=== PATIENT | female | born 1980 | race Caucasian/White ===

== ENCOUNTER 2016-08-19 18:07 | Emergency (ER) | payer OTHER ==
[~2016-08-19] VITALS: Ht 170.2 cm; Wt 82.1 kg
[2016-08-19] MEDS ORDERED: HYDR-3713 PO (18:17)
[2016-08-19] MEDS ORDERED: IBUP600T26 PO (18:17)
[2016-08-19] MEDS ORDERED: predniSONE 20 MG TAB PO ONE (19:30)
[2016-08-19] MEDS ORDERED: FAMOTIDINE 20 MG TAB PO ONE (19:30)
[2016-08-19] MEDS ORDERED: DICYCLOMINE 10 MG CAP PO ONE (19:30)
--- NOTE | 2016-08-19 19:33 | ED PDOC ---
Post-Departure Follow-Up Patient presents to the ED with a possible "allergic reaction". She states that she was told "years ago" that she is allergic to her hormones. She states that she normally gets abdominal cramps with diarrhea and hives. When this occurs, it happens when she gets her menses (which she currently doesn't have). She states the symptoms will generally last 4-5 hours if she takes Benadryl right away. She states that this time, in addition to not having her menses, she is feeling chest tightness, shortness of breath and throat swelling. The remainder of her H&P and ROS are as noted on her T-sheet. She has already taken Benadryl 50 mg po, therefore, Prednisone 60 mg, Pepcid 40 mg were ordered for her allergic reaction and Bentyl 10 mg was ordered for her cramps. NAYELI HODGSON. [facility] Aug 19, 2016 19:33
--- NOTE | 2016-08-19 20:26 | ED PDOC ---
Post-Departure Follow-Up No worsening of symptoms. Discussed discharge plans, including prescriptions, follow-up and worrisome signs to return to the ED for. Questions answered. Patient states understanding to the instructions NAYELI HODGSON [facility] Aug 19, 2016 20:26
[2016-08-19] MEDS ORDERED: PEPC1TAB4 PO (20:30)
[2016-08-19] MEDS ORDERED: MEDR4PAK PO (20:30)
[2016-08-19 20:37] VITALS: BP 136/85
== END 2016-08-19 20:39 | disposition home or self-care (01) ==
LOC: M ED 19:04
DX: T78.40XA Allergy, unspecified, initial encounter (principal); Y92.9 Unspecified place or not applicable; Y93.9 Activity, unspecified; Z79.899 Other long term (current) drug therapy; Z88.2 Allergy status to sulfonamides

== ENCOUNTER → 2017-05-03 | Outpatient (REF) | payer OTHER ==
[2017-05-03 15:48] LABS: BASO % 0.4 % (0.0-1.0); EOS # 0.1 10^3/uL (0.0-0.50); EOS % 0.5 % (0.0-3.0); HEMATOCRIT 34.7 % (36.0-47.0); HEMOGLOBIN 11.7 g/dl (12.0-16.0); IMMATURE GRANULOCYTE % 0.8 % (0-3.0); LYMPH # 1.7 10^3/uL (1.5-4.5); LYMPH % 17.3 % (24.0-44.0); MEAN CORPUSCULAR HEMOGLOBIN 32.8 pg (27.0-33.0); MEAN CORPUSCULAR HGB CONC 33.7 g/dl (32.0-36.5); MEAN CORPUSCULAR VOLUME 97.2 fl (80.0-96.0); MONO # 0.8 10^3/uL (0.0-0.8); MONO % 7.9 % (0.0-5.0); NEUTROPHILS # 7.3 10^3/uL (1.8-7.7); NEUTROPHILS % 73.1 % (36.0-66.0); PLATELET COUNT, AUTOMATED 303 10^3/uL (150-450); RED BLOOD COUNT 3.57 10^6/uL (4.00-5.40)
[2017-05-03 16:11] LABS: GLUCOSE CHALLENGE TEST 1 HOUR 96 MG/DL (LESS THAN 140)
[2017-05-05 08:07] LABS: HERPES ZOSTER, VARICELLA IgG 905 index (Immune >165)
== END ==
LOC: M LABDRAW1 11:04
DX: Z34.83 Encounter for supervision of other normal pregnancy, third trimester (principal)

== ENCOUNTER → 2017-07-02 | Outpatient (REF) | payer OTHER ==
[2017-07-02 16:13] LABS: BASO % 0.1 % (0.0-1.0); EOS % 0.4 % (0.0-3.0); HEMATOCRIT 33.4 % (36.0-47.0); HEMOGLOBIN 11.2 g/dl (12.0-15.5); IMMATURE GRANULOCYTE % 0.7 % (0-3.0); LYMPH # 1.1 10^3/uL (1.5-4.5); LYMPH % 16.2 % (24.0-44.0); MEAN CORPUSCULAR HEMOGLOBIN 32.3 pg (27.0-33.0); MEAN CORPUSCULAR HGB CONC 33.5 g/dl (32.0-36.5); MEAN CORPUSCULAR VOLUME 96.3 fl (80.0-96.0); MONO # 0.7 10^3/uL (0.0-0.8); MONO % 10.3 % (0.0-5.0); NEUTROPHILS # 4.8 10^3/uL (1.8-7.7); NEUTROPHILS % 72.3 % (36.0-66.0); PLATELET COUNT, AUTOMATED 264 10^3/uL (150-450); RED BLOOD COUNT 3.47 10^6/uL (4.00-5.40); RED CELL DISTRIBUTION WIDTH 13.2 % (11.5-14.5); WHITE BLOOD COUNT 6.7 10^3/uL (4.0-10.0)
[2017-07-02 16:22] LABS: HEPATITIS B SURFACE ANTIBODY POSITIVE (POSITIVE)
[2017-07-02 16:31] LABS: HBsAg Prenatal NEGATIVE (NEGATIVE)
[2017-07-02 16:59] LABS: HEPATITIS C VIRUS ABY INDEX < 0.0 INDEX (<0.8)
[2017-07-02 17:00] LABS: HIV 1&2 SCREEN CENTAUR NEGATIVE (NEGATIVE)
== END ==
LOC: M LABDRAW1 11:17
DX: Z34.83 Encounter for supervision of other normal pregnancy, third trimester (principal); Z36.89 Encounter for other specified antenatal screening